=== PATIENT | male | born 1995 | race Caucasian/White ===

== ENCOUNTER 2021-03-11 21:21 | Emergency (ER) | payer SELFPAY ==
[~2021-03-11 21:21] MED LIST: CEPH500C PO; FLUO40CA PO; HYDR-757 PO; SILV25CR TP; TRAM-21 PO
[2021-03-11 22:34] LABS: BASOPHILS # (AUTO) 0.1 10^3/uL (0.0-0.1); BASOPHILS % (AUTO) 1 % (0-10); EOSINOPHILS # (AUTO) 0.5 10^3/uL (0.0-0.3); EOSINOPHILS % (AUTO) 3 % (0-10); HEMATOCRIT 43 % (40-54); LYMPHOCYTES # (AUTO) 5.4 10^3/uL (1.0-4.0); LYMPHOCYTES % (AUTO) 36 % (12-44); MEAN CORPUSCULAR HEMOGLOBIN 32 pg (25-34); MEAN CORPUSCULAR HGB CONC 35 g/dL (32-36); MEAN CORPUSCULAR VOLUME 91 fL (80-99); MEAN PLATELET VOLUME 9.5 fL (9.0-12.2); MONOCYTES # (AUTO) 1.3 10^3/uL (0.0-1.0); MONOCYTES % (AUTO) 9 % (0-12); NEUTROPHILS # (AUTO) 7.7 10^3/uL (1.8-7.8); NEUTROPHILS % (AUTO) 51 % (42-75); PLATELET COUNT 389 10^3/uL (130-400)
--- NOTE | 2021-03-11 22:34 | ED General ---
General Stated Complaint: ASPIRIN OVERDOSE Source of Information: Patient, Family Exam Limitations: No Limitations History of Present Illness Date Seen by Provider: Mar 11, 2021 Time Seen by Provider: 22:33 Initial Comments Patient is a 26-year-old male who presents to the emergency department today after an unintentional aspirin overdose. Patient states that he was released from residential last Thursday (after a 2 month incarceration), told that he had high blood pressure and advised to take aspirin for his high blood pressure. He was subsequently given a bottle of aspirin by his sister and has been taking a cou ple of baby aspirin every time he is felt like his blood pressure has been high. He is taken up to 50 tablets potentially over the course of the last 3 days for intermittent feelings of blood pressure being up. He denies any nausea or vomiting. He denies any chest pain or shortness of breath. He is not lightheaded or dizzy when he stands up. Patient denies SI/HI. Initially did not want a "work up" but I explained the potential risks of even an unintentional asa overdose and he is agreeable. All other ROS reviewed and neg except as stated. Timing/Duration: 2-3 Days Associated Systoms: Denies Symptoms Allergies and Home Medications Allergies Coded Allergies: No Known Drug Allergies (Unverified , 02/19/11) Patient Home Medication List Home Medication List Reviewed: Yes Cephalexin Monohydrate (Cephalexin) 500 Mg Capsule, 1 EACH PO QID Prescribed by: SONIYA ROSA on 10/30/11622 Fluoxetine Hcl (Fluoxetine Hcl) 40 Mg Capsule, 40 MG PO DAILY, (Reported) Entered as Reported by: JOSE CHINO on 02/19/111715 Tramadol Hcl (Ultram) 50 Mg Tablet, 50 MG PO QID Prescribed by: SONIYA ROSA on 10/30/11622 Review of Systems Review of Systems Constitutional: see HPI EENTM: no symptoms reported Respiratory: no symptoms reported Cardiovascular: no symptoms reported Gastrointestinal: no symptoms reported Genitourinary: no symptoms reported Musculoskeletal: no symptoms reported Skin: no symptoms reported Psychiatric/Neurological: No Symptoms Reported All Other Systems Reviewed Negative Unless Noted: Yes Physical Exam Vital Signs Vital Signs - First Documented 03/11/21 22:20 Temp 37.2 Pulse 86 Resp 16 B/P (MAP) 151/95 (113) Pulse Ox 100 O2 Delivery Room Air Capillary Refill : Height, Weight, BMI Height: '" Weight: lbs. oz. kg; BMI Method:Stated General Appearance: No Apparent Distress, WD/WN Eyes: Bilateral Eye Normal Inspection, Bilateral Eye PERRL, Bilateral Eye EOMI HEENT: PERRL/EOMI Neck: Normal Inspection Respiratory: Lungs Clear, Normal Breath Sounds, No Accessory Muscle Use, No Respiratory Distress Cardiovascular: Regular Rate, Rhythm, Normal Peripheral Pulses Gastrointestinal: Non Tender, Soft Extremity: Normal Capillary Refill, Normal Inspection Neurologic/Psychiatric: Alert, Oriented x3, No Motor/Sensory Deficits, Normal Mood/Affect, Other (no suicidal ideation) Skin: Normal Color, Warm/Dry Progress/Results/Core Measures Suspected Sepsis SIRS Temperature: Pulse: Respiratory Rate: Laboratory Tests 03/11/21 22:26: White Blood Count 15.0H Blood Pressure / Mean: Laboratory Tests 03/11/21 22:26: Creatinine 1.14, Platelet Count 389, Total Bilirubin 0.7 Results/Orders Lab Results Laboratory Tests Test 03/11/21 22:26 Range/Units White Blood Count 15.0 H 4.3-11.0 10^3/uL Red Blood Count 4.75 4.30-5.52 10^6/uL Hemoglobin 15.0 13.3-17.7 g/dL Hematocrit 43 40-54 % Mean Corpuscular Volume 91 80-99 fL Mean Corpuscular Hemoglobin 32 25-34 pg Mean Corpuscular Hemoglobin Concent 35 32-36 g/dL Red Cell Distribution Width 12.5 10.0-14.5 % Platelet Count 389 130-400 10^3/uL Mean Platelet Volume 9.5 9.0-12.2 fL Immature Granulocyte % (Auto) 0 % Neutrophils (%) (Auto) 51 42-75 % Lymphocytes (%) (Auto) 36 12-44 % Monocytes (%) (Auto) 9 0-12 % Eosinophils (%) (Auto) 3 0-10 % Basophils (%) (Auto) 1 0-10 % Neutrophils # (Auto) 7.7 1.8-7.8 10^3/uL Lymphocytes # (Auto) 5.4 H 1.0-4.0 10^3/uL Monocytes # (Auto) 1.3 H 0.0-1.0 10^3/uL Eosinophils # (Auto) 0.5 H 0.0-0.3 10^3/uL Basophils # (Auto) 0.1 0.0-0.1 10^3/uL Immature Granulocyte # (Auto) 0.1 0.0-0.1 10^3/uL Neutrophils % (Manual) 53 % Lymphocytes % (Manual) 32 % Monocytes % (Manual) 11 % Eosinophils % (Manual) 4 % Blood Morphology Comment NORMAL Sodium Level 142 135-145 MMOL/L Potassium Level 3.6 3.6-5.0 MMOL/L Chloride Level 105 98-107 MMOL/L Carbon Dioxide Level 20 L 21-32 MMOL/L Anion Gap 17 H 5-14 MMOL/L Blood Urea Nitrogen 13 7-18 MG/DL Creatinine 1.14 0.60-1.30 MG/DL Estimat Glomerular Filtration Rate 90 BUN/Creatinine Ratio 11 Glucose Level 90 70-105 MG/DL Calcium Level 10.1 8.5-10.1 MG/DL Corrected Calcium 8.5-10.1 MG/DL Total Bilirubin 0.7 0.1-1.0 MG/DL Aspartate Amino Transf (AST/SGOT) 27 5-34 U/L Alanine Aminotransferase (ALT/SGPT) 22 0-55 U/L Alkaline Phosphatase 84 40-136 U/L Total Protein 8.6 H 6.4-8.2 GM/DL Albumin 5.0 H 3.2-4.5 GM/DL Salicylates Level < 5.0 L 5.0-20.0 MG/DL Acetaminophen Level < 10 L 10-30 UG/ML My Orders Orders - PRICE VINSON MD Ed Iv/Invasive Line Start (03/11/21 22:25) Cbc With Automated Diff (03/11/21 22:25) Comprehensive Metabolic Panel (03/11/21 22:25) Salicylate (03/11/21 22:25) Acetaminophen (03/11/21 22:25) Ekg Tracing (03/11/21 22:25) Manual Differential (03/11/21 22:26) Vital Signs/I&O 03/11/21 03/11/21 22:20 23:35 Temp 37.2 Pulse 86 91 Resp 16 16 B/P (MAP) 151/95 (113) 134/91 Pulse Ox 100 99 O2 Delivery Room Air Room Air Capillary Refill : Progress Note : Time: 23:18 Progress Note Evaluated patient's labs, his aspirin and Tylenol levels are undetectable. He does have a mild leukocytosis of 15,000, slightly elevated anion gap as well as slightly lowered serum CO2. The patient is completely asymptomatic. Has no complaints of pain, shortness of breath, nausea vomiting. I have talked to him about follow-up with [facility], he verbalized understanding and his significant other at the bedside and states that they will follow-up tomorrow. I have advised him on further aspirin dosing. All questions are sought and answered. Patient is stable for discharge. ECG Initial ECG Impression Date: Mar 11, 2021 Initial ECG Impression Time: 22:41 Initial ECG Rate: 71 Initial ECG Rhythm: Normal Sinus Initial ECG Intervals NM 147 QRS 117 QTc 424 Comment Right bundle branch block noted, sinus arrhythmia, no significant ST segment elevation or depression noted. Departure Impression Primary Impression: concern for salicylate overdose Additional Impression: Elevated blood pressure reading Disposition: 01 HOME, SELF-CARE Condition: Stable Departure-Patient Inst. Decision time for Depature: 23:20 Referrals: [facility]/GISE[facility],LOCAL PHYSICIAN (PCP) Primary Care Physician Patient Instructions: High Blood Pressure ED Add. Discharge Instructions: Only take baby aspirin/aspirin as directed on the bottle. Please follow-up with [facility] tomorrow for further evaluation and management of your elevated blood pressure. Return to the emergency department for any new, concerning or emergent complaints. Copy Copies To 1: LUIS ANTONIO MOLINA KATHRYN M MD Mar 11, 2021 22:34
[2021-03-11 22:47] LABS: CHLORIDE 105 MMOL/L (98-107); POTASSIUM 3.6 MMOL/L (3.6-5.0); SODIUM 142 MMOL/L (135-145)
[2021-03-11 22:48] LABS: CALCIUM 10.1 MG/DL (8.5-10.1)
[2021-03-11 22:49] LABS: GLUCOSE 90 MG/DL (70-105); TOTAL PROTEIN 8.6 GM/DL (6.4-8.2)
[2021-03-11 22:50] LABS: EOSINOPHILS % (MANUAL) 4 %; LYMPHOCYTES % (MANUAL) 32 %; MONOCYTES % (MANUAL) 11 %; NEUTROPHILS % (MANUAL) 53 %; RBC MORPH NORMAL
[2021-03-11 22:51] LABS: BILIRUBIN,TOTAL 0.7 MG/DL (0.1-1.0); CARBON DIOXIDE 20 MMOL/L (21-32)
[2021-03-11 22:53] LABS: ALKALINE PHOSPHATASE 84 U/L (40-136); CREATININE SERUM 1.14 MG/DL (0.60-1.30); GFR ESTIMATED 90
[2021-03-11 22:54] LABS: BUN/CREATININE RATIO 11
[2021-03-11 22:56] LABS: ALANINE AMINOTRANSFERASE 22 U/L (0-55); SALICYLATE < 5.0 MG/DL (5.0-20.0)
[2021-03-11 23:04] LABS: ACETAMINOPHEN < 10 UG/ML (10-30)
[2021-03-11 23:35] VITALS: BP 134/91
== END 2021-03-11 23:35 | disposition home or self-care (01) ==
LOC: EDUNIT# 21:21 → ER 21:27
DX: T39.011A Poisoning by aspirin, accidental (unintentional), initial encounter (principal); R03.0 Elevated blood-pressure reading, without diagnosis of hypertension
CPT/HCPCS: 80053; 85007; 85027; 93005; 99284; G0480 ×2; 36415; 80329